=== PATIENT | female | born 1935 | race Caucasian/White ===

== ENCOUNTER 2016-04-08 11:38 | Emergency (ER) | payer MEDICARE ==
[~2016-04-08] VITALS: Ht 154.9 cm; Wt 75.0 kg
[2016-04-08 11:39] VITALS: BP 124/73; PULSE 104; RESP 16; TEMP 98; O2SAT 96
[2016-04-08 11:59] VITALS: BP 132/71; PULSE 81; RESP 18; O2SAT 95
--- NOTE | 2016-04-08 12:11 | PD ---
HPI Chief Complaint: Head Injury Time Seen by Provider: 11:51 Travel History International Travel<30 days: No Contact w/Intl Traveler<30days: No Traveled to known affect area: No History of Present Illness HPI 80-year-old female came to the emergency room after losing her footing while she was climbing up the stairs and falling awkwardly and injuring her head. She has a laceration on her right eyebrow that seems pretty deep and abrasion of her right knee and right great toe. Patient is positive that she did not lose consciousness either before or after the event. This was. Mechanical fall due to missing of footing. Patient was slightly tachycardic in triage but then her heart rate came down to normal. [facility] Past Medical History Narrative Medical List of her past medical history is reviewed from the nursing note. Diabetes: Yes Past Surgical History Hysterectomy: Yes Social History Tobacco Use: No Allergies-Medications (Allergen,Severity, Reaction): Coded Allergies: Penicillin (Verified Allergy, Intermediate, 04/08/16) Comments List of her allergies reviewed from the nursing note. Reported Meds & Prescriptions Reported Meds & Active Scripts Active Bacitracin Topical 500 Unit/Gm Oint 1 Applic TOPICAL BID 7 Days Clindamycin (Clindamycin HCl) 300 Mg Cap 300 Mg PO TID Reported Multivitamin Adults (Multiple Vitamins W/ Minerals) 1 Tab 1 Tab PO DAILY Atorvastatin (Atorvastatin Calcium) 10 Mg Tab Unknown Dose PO HS Levothyroxine (Levothyroxine Sodium) 25 Mcg Tab Unknown Dose PO DAILY Metformin (Metformin HCl) 500 Mg Tab Unknown Dose PO DAILY With meals Amlodipine (Amlodipine Besylate) 2.5 Mg Tab Unknown Dose PO DAILY Narrative Medication List of her home medications reviewed from the nursing note. Review of Systems Except as stated in HPI: all other systems reviewed are Neg Physical Exam Narrative GENERAL: Awake, alert, anxious, obese SKIN: Warm and dry. Abrasion of her right knee and right great toe HEAD: 2 cm laceration deep, vertigo on her right eyebrow EYES: Pupils equal and round. No scleral icterus. No injection or drainage. No signs of orbital injury. ENT: No nasal bleeding or discharge. Mucous membranes pink and moist. NECK: Trachea midline. No JVD. CARDIOVASCULAR: Regular rate and rhythm. No murmur appreciated. RESPIRATORY: No accessory muscle use. Clear to auscultation. Breath sounds equal bilaterally. GASTROINTESTINAL: Abdomen soft, non-tender, nondistended. Hepatic and splenic margins not palpable. MUSCULOSKELETAL: No obvious deformities. No clubbing. No cyanosis. No edema. NEUROLOGICAL: Awake and alert. No obvious cranial nerve deficits. Motor grossly within normal limits. Normal speech. PSYCHIATRIC: Appropriate mood and affect; insight and judgment normal. Data Data Last Documented VS Vital Signs Date Time Temp Pulse Resp B/P Pulse Ox O2 Delivery O2 Flow Rate FiO2 04/08/16 12:06 81 18 95 Room Air 04/08/16 11:59 132/71 04/08/16 11:[address] Brain W/O Iv Contrast(Rout) (04/08/16 ) Tetanus/Diphtheria Tox Adult (Tetanus/Di (04/08/16 12:15) Blood Glucose (04/08/16 12:11) Lidocai-Epi 1%-1:100,000 Inj (Xylocaine- (04/08/16 12:15) MDM Medical Decision Making Medical Screen Exam Complete: Yes Emergency Medical Condition: Yes Medical Record Reviewed: Yes Differential Diagnosis Intracranial bleed, laceration, contusions Narrative Course 1:16 PM CAT scan is within normal limit. The PA is suturing the laceration. Please refer to his notes procedure. Patient will be discharged home on prescription. Procedures EKG Prior to Arrival: No Diagnosis Primary Impression: Fall Qualified Code: W19.XXXA - Fall, initial encounter Additional Impressions: Head injury Qualified Code: S09.90XA - Head injury, initial encounter Facial laceration Qualified Code: S01.81XA - Facial laceration, initial encounter Contusion Qualified Code: S00.11XA - Contusion of right periocular region, initial encounter Referrals: Primary Care Physician 1 week Patient Instructions: General Instructions Additional Instructions: Please return to the ER if the condition worsens or any other new concerns. Apply the antibiotic ointment on the wound twice a day told the stitches come out. There is need to come out in 7 days. She can come back to the emergency room or go to your primary care for that. Keep the wound clean and dry and take the antibiotic as per the prescription direction. Please return to the ER if the condition worsens or any other new concerns. Take Tylenol or ibuprofen for pain. Med/Other Pt SpecificInfo: Prescription(s) given Scripts Bacitracin Topical 500 Unit/Gm Oint1 Applic TOPICAL BID 7 Days Ref 0 Prov:Aleja Perez MD 04/08/16 Clindamycin 300 Mg [id number] Mg PO TID #21 CAP Ref 0 Prov:Aleja Perez MD 04/08/16 Disposition: 01 DISCHARGE HOME Condition: Stable Aleja Perez MD Apr 08, 2016 12:10
[2016-04-08] MEDS ORDERED: TETANUS/DIPHTHERIA TOXOID ADULT 0.5 ML VIAL IM ONE (12:15)
[2016-04-08] MEDS ORDERED: LIDOCAINE 1%/EPINEPHrine 1:100,000 SOLN 20 ML VIAL INFIL ONE (12:15)
[2016-04-08] MEDS ORDERED: AMLO2.5T PO (12:18)
[2016-04-08] MEDS ORDERED: LEVO25TA4 PO (12:18)
[2016-04-08] MEDS ORDERED: METF500T PO (12:18)
[2016-04-08] MEDS ORDERED: MULT1TAB84 PO (12:18)
[2016-04-08] MEDS ORDERED: ATOR10TA15 PO (12:18)
--- NOTE | 2016-04-08 12:49 | RADRPT ---
EXAM DATE/TIME: 04/08/2016 12:42 [place] COMPARISON: No previous studies available for comparison. INDICATIONS : Trauma. Fell and hit head. Laceration above right eye. RADIATION DOSE: 34.55 CTDIvol (mGy) MEDICAL HISTORY : Hypertension. Diabetes mellitus type 2. SURGICAL HISTORY : None. ENCOUNTER: Initial ACUITY: 1 day PAIN SCALE: 4/10 LOCATION: cranial TECHNIQUE: Multiple contiguous axial images were obtained of the head. Using automated exposure control and adj ustment of the mA and/or kV according to patient size, radiation dose was kept as low as reasonably a chievable to obtain optimal diagnostic quality images. FINDINGS: CEREBRUM: The ventricles are normal for age. No evidence of midline shift, mass lesion, hemorrhage or acute in farction. No extra-axial fluid collections are seen. POSTERIOR FOSSA: The cerebellum and brainstem are intact. The 4th ventricle is midline. The cerebellopontine angle i s unremarkable. EXTRACRANIAL: The visualized portion of the orbits is intact. SKULL: The calvaria is intact. No evidence of skull fracture. There is a small amount of soft tissue emphys joellen in the right supraorbital scalp with overlying laceration. CONCLUSION: Right supraorbital scalp laceration. Marky Brown MD on April 08, 2016 at 12:47 Board Certified Radiologist. This report was verified electronically.
--- NOTE | 2016-04-08 13:17 | PD ---
Physical Exam Time Seen by Provider: 13:00 Data Data Last Documented VS Vital Signs Date Time Temp Pulse Resp B/P Pulse Ox O2 Delivery O2 Flow Rate FiO2 04/08/16 12:06 81 18 95 Room Air 04/08/16 11:59 132/71 04/08/16 11:[address] Brain W/O Iv Contrast(Rout) (04/08/16 ) Tetanus/Diphtheria Tox Adult (Tetanus/Di (04/08/16 12:15) Blood Glucose (04/08/16 12:11) Lidocai-Epi 1%-1:100,000 Inj (Xylocaine- (04/08/16 12:15) MDM Medical Record Reviewed: Yes Supervised Visit with MARVEL: No Narrative Course The patient verbally consents laceration repair. Procedures Procedure Narrative LACERATION LOCATION: Right eyebrow LENGTH 1 cm NUMBER OF STITCHES/TERI:4 REPAIR: The area of the laceration was prepped with Betadine and sterilely draped. The laceration was infiltrated with 1% lidocaine with epinephrine. The wound was copiously irrigated and explored without evidence of foreign body , tendon injury or neurovascular injury. The wound was closed using 6-0 PROLENE simple interrupted. This was a single layer repair. A sterile dressing was applied. The patient was advised to keep the dressing clean and dry. Patient tolerated the procedure well. Jeff Henson Apr 08, 2016 13:17
[2016-04-08] MEDS ORDERED: BACI500O9 TOPICAL (13:22)
[2016-04-08] MEDS ORDERED: CLIN1CAP6 PO (13:22)
== END 2016-04-08 13:57 | disposition home or self-care (01) ==
LOC: NEPA 11:38
DX: S01.111A Laceration without foreign body of right eyelid and periocular area, initial encounter (principal); S80.211A Abrasion, right knee, initial encounter; W10.9XXA Fall (on) (from) unspecified stairs and steps, initial encounter; Z23 Encounter for immunization
CPT/HCPCS: 12011; 70450; 90471; 90714